=== PATIENT | female | born 1965 | race Caucasian/White ===

== ENCOUNTER 2021-01-19 17:35 | Emergency (ER) | payer OTHER ==
[~2021-01-19] VITALS: Ht 162.5 cm; Wt 80.4 kg
[~2021-01-19 17:35] MED LIST: MOTRIN800 MG PO
[2021-01-19 18:07] VITALS: BP 145/77
== END 2021-01-19 20:24 | disposition home or self-care (01) ==
LOC: ED 17:35
DX: S93.402A Sprain of unspecified ligament of left ankle, initial encounter (principal); S86.912A Strain of unspecified muscle(s) and tendon(s) at lower leg level, left leg, initial encounter; Z91.041 Radiographic dye allergy status; Z90.49 Acquired absence of other specified parts of digestive tract; Z98.51 Tubal ligation status; X50.1XXA Overexertion from prolonged static or awkward postures, initial encounter; Y93.89 Activity, other specified; Y92.89 Other specified places as the place of occurrence of the external cause; Y99.8 Other external cause status